=== PATIENT | male | born 1965 | race Caucasian/White ===

== ENCOUNTER 2016-07-12 03:41 | Emergency (ER) | payer OTHER ==
[~2016-07-12] VITALS: Ht 170.2 cm; Wt 89.7 kg
[~2016-07-12 03:41] MED LIST: ABILIFY; ABILIFY10 MG PO; ABILIFY30 MG PO; Ambien PO; BUSPAR10 MG PO; BUSPAR5 MG PO; BUSPIRONE HCL15 MG PO; Buspar PO; CALCITRIOL0.5 MCG PO; CALCITROL; CARDIZEM CD,CA240 MG PO; CARDIZEM CD,CA300 MG PO; Cardizem CD,Cartia X PO; Cortef PO; DECLOMYCIN150 MG PO; DECLOMYCIN300 MG PO; DEMECLOCYCLINE300 MG PO; DIABETA5 MG PO; DIPHENHYDRAMINE50 MG PO; DuoNeb IH; ENALAPRIL MALEA10 MG PO; FERROUS SULFAT325 MG PO; FORTAMET1000 M1 PO; Feosol PO; GEMFIBROZIL600 MG PO; GLYBURIDE5 MG PO; LOPID600 MG PO; LOPRESSOR25 MG PO; LOPRESSOR50 MG PO; MULTIVITAMIN1 EAC2 PO; PANTOPRAZOLE SO40 MG; PANTOPRAZOLE SO40 MG PO; PERCOCET; PLAVIX75 MG PO; Protonix PO; Proventil,Ventolin H IH; ROCALTROL0.5 MCG PO; Rocaltrol PO; TREXALL10 MG PO; URECHOLINE25 MG PO; Vasotec PO; ZYPREXA; ZYPREXA20 MG PO; ZyPREXA PO; [UNRECOGNIZED DRUG - OTHER]; [UNRECOGNIZED DRUG - OTHER]; [UNRECOGNIZED DRUG - OTHER]; [UNRECOGNIZED DRUG - OTHER]
[2016-07-12 05:01] VITALS: BP 98/72
== END 2016-07-12 05:03 | disposition home or self-care (01) ==
LOC: EME 03:41
DX: G47.00 Insomnia, unspecified (principal); F17.200 Nicotine dependence, unspecified, uncomplicated
CPT/HCPCS: 99281; 99284